=== PATIENT | male | born 1995 | race Caucasian/White ===

== ENCOUNTER 2023-10-28 00:45 | Emergency (ER) | payer SELFPAY ==
[2023-10-28 00:49] VITALS: BP 148/85; PULSE 85; RESP 18; TEMP 38.1; O2SAT 100
[2023-10-28 00:55] VITALS: BP 148/85; PULSE 85; RESP 18; TEMP 38.1; O2SAT 100
--- NOTE | 2023-10-28 02:06 | W.ED.GENAD ---
Discharge Plan Disposition Patient Disposition: Home Condition: Good Discharge Details Clinical Impression: Otitis externa Primary Care Provider: Unknown,Unknown ED Provider: Carmina Carvalho Home Meds and New Rx's Prescriptions: New ciprofloxacin HCl 500 mg tablet 500 mg PO BID Qty: 14 0RF ofloxacin 0.3 % drops 5 drp otic (ear) BID 14 Days Qty: 10 0RF Discharge Instructions Instructions: Outer Ear Infection ED Additional Instructions: 5 drops in right ear every 12 hours for the next week. Oral antibiotic every 12 hours for the next week. Followup with ENT; they will call you to schedule an appointment. If you do not hear from them on Sunday, please call to schedule an appointment. Return to the emergency department for new or worsening symptoms including fever, worsening pain/swelling, inability to open your mouth, difficulty swallowing, if you feel generally unwell, or if you have any other concerns. Referrals: [facility] [Provider Group] Discharge Data Discharge Date/Time-TO BE ENTERED AT DEPARTURE: 10/28/23 05:13 HPI General Mode of arrival: ambulatory. Date/Time Provider Initiated Documentation: 10/28/23 00:55. Limitations to Documentation: no limitations. Information obtained by: patient. HPI Narrative: 27yo M with hx cracked tooth on right with prior infections presenting for right jaw and ear pain. 1-2 days of right mandibular pain radiating up to his right ear, now right ear feels swollen, warm, and painful. No tooth pain. No difficulty swallowing. No neck pain. No fevers at home, no nausea or vomiting. Otherwise in his usual state of health. Related Data Home Medications ?Medication ?Instructions ?Recorded ?Confirmed ciprofloxacin HCl 500 mg tablet 500 mg PO BID #14 tabs 10/28/23 ofloxacin 0.3 % ear drops 5 drp otic (ear) BID 14 days #10 mL 10/28/23 Previous Rx's ?Medication ?Instructions ?Recorded ciprofloxacin HCl 500 mg tablet 500 mg PO BID #14 tabs 10/28/23 ofloxacin 0.3 % ear drops 5 drp otic (ear) BID 14 days #10 mL 10/28/23 Allergies Allergy/AdvReac Type Severity Reaction Status Date / Time No Known Allergies Allergy Verified 10/28/23 00:53 General Stated Complaint: EarProblem SANDRITA: 4 Review of Systems Narrative: see HPI Exam Narrative Exam Narrative: General: Alert, well appearing, well nourished, in no acute distress. Head: Normocephalic, atraumatic Neck: Trachea midline, ?Neck supple. Anterior neck nontender ENT: ?MMM.? No oropharygeal lesions or exudate. Uvula midline. Right TM erythematous. No intraoral swelling or lesions. No trismus. Right mandible moderately TTP , worst at TMG/preauricular area. Pain with palpation/manipulation of right ear. Questionable mastoid tenderness. Cardiac: ?RRR, no murmurs appreciated Resp: No respiratory distress. CTAB. Abd: ?Non-distended, Extremities: ?No deformities.? No peripheral edema. Neurologic: GCS 15. ? Moves all extremities freely against gravity Course Vital Signs Vital signs: Vital Signs Temperature 38.1 C H 10/28/23 00:49 Pulse 85 10/28/23 00:49 Respiratory Rate 18 10/28/23 00:49 Blood Pressure 148/85 H 10/28/23 00:49 Pulse Oximetry 100 10/28/23 00:49 Temperature 38.1 C H 10/28/23 00:55 Temperature Source Temporal Artery Scan 10/28/23 00:55 Pulse 85 10/28/23 00:55 Respiratory Rate 18 10/28/23 00:55 Respiratory Effort Normal, Non-Labored 10/28/23 00:54 Blood Pressure 148/85 H 10/28/23 00:55 Blood Pressure Position Sitting 10/28/23 00:55 Pulse Oximetry 100 10/28/23 00:55 Oxygen Delivery Method Room Air 10/28/23 00:55 Oxygen Flow Rate 0 10/28/23 00:49 Pain Level 8 10/28/23 01:01 Medical Decision Making 27yo M with hx cracked tooth on right with prior dental infections presenting for right jaw and ear pain. 1-2 days of right mandibular pain radiating up to his right ear, now right ear feels swollen, warm, and painful. Initial temp in ED borderline febrile at 38.1 (temporal); subsequent oral temperature 37.6 without intervention. On exam he has right mandibular tenderness and significant pain with manipulation of right ear; TM slightly erythematous. Patient denies fevers at home and is systemically well, suspect initial value likely eroneous, however given this will further evaluate with labs, as well as get CT imaging. Tylenol and toradol for pain. Will treat initially for possible odontogenic infection with IV clindamycin. Exam not concerning for karel's, deep space neck infection, buccal space infection, peritonsillar abscess. Labs reviewed as below, CBC reassuring with no leukocytosis or anemia, CMP with no actionable abnormalities, lactate normal, ESR normal, CRP mildly elevated at 1.6. CT face independently reviewed, radiology read below with potential otitis externa, no indication of mastoiditis. Based on exam clinically favor xiomara externa +/- otitis media, though no clear edema of auditory canal. Unlikely malignant otitis media as again I suspect initial elevated temperature was eroneous, patient is systemically well, and laboratory workup is reassuring. Will treat with oral and otic abx, have patient followup with ENT within the week. Discharged home; discharge instructions and return precautions were reviewed with patient who verbalized understanding. All questions were answered and he is in full agreement with the plan. Imaging Data Radiologic Study: Imaging: CT Scan Radiologist's impression: IMPRESSION: 1. There is uniform diffuse thickening of the tympanic membrane which is nonspecific, potentially signifying scarring related to prior infection or intervention. Otitis media not excluded. 2. There is diffuse non masslike thickening of the soft tissue of the superficial half of the right external auditory canal which may signify otitis externa. 3. No opacification of the mastoid air cells, osseous destruction, or overlying inflammation to indicate mastoiditis. Lab Data Lab results reviewed: Yes I reviewed the patient's lab results. Labs: Laboratory Tests Range/Units 10/28/23 02:25 WBC (4.4-10.8) 10^3/uL 10.08 RBC (4.36-5.78) 10^6/uL 5.40 Hgb (13.5-17.5) g/dL 15.8 Hct (40.0-50.0) % 46.5 MCV (80-95) fL 86 MCH (27.0-33.0) pg 29.3 MCHC (32.0-36.0) % 34.0 RDW (11.8-14.1) % 12.8 Plt Count (130-400) 10^3/uL 319 MPV (8.0-11.0) fL 8.4 Immature Gran % % 0.2 Neutrophils % % 67.8 Lymphocytes % % 22.3 Monocytes % % 8.0 Eosinophils % % 1.2 Basophils % % 0.5 Nucleated RBC % (0.0-0.3) % 0.0 Absolute Neutrophils (1.2-6.7) 10^3/uL 6.83 H Absolute Lymphocytes (1.2-3.4) 10^3/uL 2.25 Absolute Monocytes (0.1-0.8) 10^3/uL 0.81 H Absolute Eosinophils (0.0-0.7) 10^3/uL 0.12 Absolute Basophils (0.0-0.2) 10^3/uL 0.05 ESR (0-15) mm/hr 2 VBG Lactate (0.6-1.4) mmol/L 1.0 Sodium (136-145) mmol/L 138 Potassium (3.5-5.1) mmol/L 3.7 Chloride (98-107) mmol/L 101 Carbon Dioxide (21.0-32.0) mmol/L 29.6 Anion Gap (3-11) mmol/L 7.4 BUN (7-18) mg/dL 12 Creatinine (0.70-1.30) mg/dL 0.9 Est GFR (CKD-EPI 2020) (mL/min/1.73m2) 119.31 Glucose (74-106) mg/dL 98 Calcium (8.5-10.1) mg/dL 9.5 Total Bilirubin (0.2-1.0) mg/dL 0.49 AST (15-37) U/L 15 ALT (16-63) U/L 29 Alkaline Phosphatase (46-116) U/L 98 C-Reactive Protein (<or=0.5) mg/dL 1.63 H Total Protein (6.4-8.2) g/dL 8.1 Albumin (3.4-5.0) g/dL 4.0 Quality:SDOH Health Related Social Needs: No Data to Display PFSH All Active Problems (Updated 10/28/23 @ 05:03 by Carmina Carvalho MD) Otitis externa (Acute) Social History Smoking/Tobacco Use Status: Current every day Tobacco Type: e-cigarettes Smoking risk assessment performed?: Yes Alcohol Intake: never Drug use: Daily Substance use type: marijuana Housing: apartment Do you feel safe at home: Yes Do you feel safe in your relationship?: Yes
[2023-10-28] MEDS: Ketorolac 15 MG/ML VIAL IVP (02:31)
[2023-10-28] MEDS: Acetaminophen 500 MG TAB 1000 MG PO (02:31)
[2023-10-28 02:37] LABS: Abs Immature Grans 0.02 10^3/uL (0.0-0.06); Absolute Basophil Count 0.05 10^3/uL (0.0-0.2); Absolute Eosinophil Count 0.12 10^3/uL (0.0-0.7); Absolute Lymphocyte Count 2.25 10^3/uL (1.2-3.4); Absolute Monocyte Count 0.81 10^3/uL (0.1-0.8); Absolute Neutrophil Count 6.83 10^3/uL (1.2-6.7); Basophils % 0.5 %; Eosinophils % 1.2 %; HCT 46.5 % (40.0-50.0); HGB 15.8 g/dL (13.5-17.5); Immature Grans % 0.2 %; Lymphocytes % 22.3 %; MCH 29.3 pg (27.0-33.0); MCV 86 fL (80-95); MPV 8.4 fL (8.0-11.0); Neutrophils % 67.8 %; Platelet Count 319 10^3/uL (130-400); RDW 12.8 % (11.8-14.1); RDW-SD 40.1 fL; WBC 10.08 10^3/uL (4.4-10.8)
[2023-10-28] MEDS: CLINDAMYCIN 600 MG/50 ML BAG 100 MG IVPB (02:37)
[2023-10-28 02:42] LABS: ESR 2 mm/hr (0-15)
[2023-10-28 02:52] LABS: ALT 29 U/L (16-63); AST 15 U/L (15-37); Alkaline Phosphatase 98 U/L (46-116); Anion Gap 7.4 mmol/L (3-11); BUN 12 mg/dL (7-18); Bilirubin, Total 0.49 mg/dL (0.2-1.0); C-Reactive Protein 1.63 mg/dL (<or=0.5); CO2 29.6 mmol/L (21.0-32.0); CREATININE 0.9 mg/dL (0.70-1.30); Calcium 9.5 mg/dL (8.5-10.1); Chloride 101 mmol/L (98-107); Estimated GFR 119.31 (mL/min/1.73m2); Glucose 98 mg/dL (74-106); Potassium 3.7 mmol/L (3.5-5.1); Sodium 138 mmol/L (136-145); Total Protein 8.1 g/dL (6.4-8.2)
[2023-10-28] MEDS: Normal Saline - Diluent 50 ML VIAL IJ (03:08)
[2023-10-28] MEDS: Omnipaque 350 MG/ML 100 ML BTL IJ (03:09)
--- NOTE | 2023-10-28 03:38 | DI.CT_ITS ---
Exam(s) CT FACIAL W EXAM: CT FACIAL W CLINICAL HISTORY: severe right jaw/ear pain, slight mastoid tenderne. TECHNIQUE: Imaging Protocol: Axial computed tomography images with coronal and sagittal reformatted images were created and reviewed CONTRAST MATERIAL: Intravenous: Omnipaque 350 Contrast volume:100 ml contrast route:IV - COMPARISON: No exams were available for comparison FINDINGS: Facial Bones: No fracture is noted in the facial bones. No destructive bony lesions. Visualized po rtions of the cervical spine appear normal. Arm dental caries noted bilateral mandibular molar teeth . Periapical lucency seen on the right. Sinuses and Mastoids: Mucosal thickening at the floor of the right maxillary sinus. Globes, extraocular muscles, optic nerves and retrobulbar fat: Normal. Vasculature: Unremarkable. Parotid, submandibular and thyroid glands are unremarkable. Upper aerodigestive tract: Normal. Mandible and bilateral temporomandibular joints: Normal. Soft tissues: Soft tissue swelling noted around the right external auditory canal consistent with kristina tis externa. No evidence of abscess. Thickening of right tympanic membrane. IMPRESSION: Findings consistent with right otitis externa. No evidence of abscess. Thickening of right tympanic membrane. Mandibular dental disease. RADIATION DOSE DELIVERED: Total DLP DATA REPOSITORY: All CT scans at this facility are submitted to the National Radiology Data Registry (NRDR) Dose Index Registry (DIR) with the [employer] ([employer]). RADIATION OPTIMIZATION: All CT scans at this facility use at least one of these dose optimization te chniques: automated exposure control; mA and/or kV adjustment per patient size (includes targeted exa ms where dose is matched to clinical indication); or iterative reconstruction.
--- NOTE | 2023-10-28 04:29 | DI.VRAD_ITS ---
PROCEDURE INFORMATION: Exam: CT Maxillofacial With Contrast Exam date and time: 10/28/2023 3:24 AM Age: 27 years old Clinical indication: Other: Severe right jaw/ear pain, slight mastoid tenderness; Prior surgery; Surgery date: 6+ months; Surgery type: [place] teeth removal almost ten years ago. TECHNIQUE: Imaging protocol: Computed tomography of the face with contrast. Contrast material: OMNIPAQUE 350; Contrast volume: 100 ml; Contrast route: INTRAVENOUS (IV); COMPARISON: No relevant prior studies available. FINDINGS: Orbital cavities: Orbits are normal. Globes are unremarkable. Paranasal sinuses: Normal. No air-fluid levels. Mastoid air cells: No opacification of the mastoid air cells, osseous destruction, or overlying inflammation to indicate mastoiditis. Auditory system: There is uniform diffuse thickening of the tympanic membrane which is nonspecific, potentially signifying scarring related to prior infection or intervention. Otitis media not excluded. Teeth: #18-19 periapical dental lucency. No cortical breakthrough. No associated subperiosteal abscess or overlying cellulitis. Bones: See Teeth finding. Soft tissues: There is diffuse non masslike thickening of the soft tissue of the superficial half of the right external auditory canal which may signify otitis externa. No soft tissue gas or abscess. IMPRESSION: 1. There is uniform diffuse thickening of the tympanic membrane which is nonspecific, potentially signifying scarring related to prior infection or intervention. Otitis media not excluded. 2. There is diffuse non masslike thickening of the soft tissue of the superficial half of the right external auditory canal which may signify otitis externa. 3. No opacification of the mastoid air cells, osseous destruction, or overlying inflammation to indicate mastoiditis. Dictated and Authenticated by: Roger Humphrey MD. Ordering:[id number] Grewal MD
[2023-10-28 04:50] VITALS: BP 118/68; PULSE 72; RESP 16; TEMP 36.6; O2SAT 99
[2023-10-28] MEDS: Ofloxacin 0.3% OTIC 5 ML BTL AD (05:12)
[2023-10-28 05:13] VITALS: BP 118/68; PULSE 72; RESP 16; TEMP 36.6; O2SAT 99
== END 2023-10-28 05:13 | disposition home or self-care (01) ==
PROVIDERS: Emergency Provider Student in an Organized Health Care Education/Training Program
DX: H60.391 Other infective otitis externa, right ear (principal)
CPT/HCPCS: 36415; 80053; 85652; 96365; 96375; 99285; 70487; 83605; 85025; 86140; 99284; J0737; J1885; J3490